=== PATIENT | male | born 1995 ===

== ENCOUNTER 2018-07-10 16:29 | Emergency (ER) | payer OTHER ==
--- NOTE | 2018-07-10 16:44 | Emergency Department Report ---
Chief Complaint: Syncope Stated Complaint: SENT BY DOCTOR/DIZZINESS Time Seen by Provider: 07/10/18 16:42 - HPI History of Present Illness: SENT FROM DUE TO ABNORMAL EKG AND DIZZINESS PMH NONE RX NONE PSH NONE NO TRAUMA MOM AW DAD AW NO CIG NO ETOH NO DRUGS MSE COMPLETED MSE screening note: Focused history and physical exam performed. Due to findings the following was ordered: ED Disposition for MSE Condition: Stable
[2018-07-10 17:02] LABS: Hematocrit 47.8 % (35.5-45.6); Hemoglobin 16.8 gm/dl (11.8-15.2); Mean Corpuscular HGB Conc 35 % (32-34); Mean Corpuscular Volume 85 fl (84-94); Platelet Count 279 K/mm3 (140-440); Red Blood Count 5.61 M/mm3 (3.65-5.03); Red Cell Distribution Width 12.5 % (13.2-15.2)
[2018-07-10 17:23] LABS: Alanine Aminotransferase 49 units/L (7-56); Albumin 4.9 g/dL (3.9-5); BUN/Creatinine Ratio 9; Blood Urea Nitrogen 12 mg/dL (9-20); Calcium 9.7 mg/dL (8.4-10.2); Hemolysis Index 16
--- NOTE | 2018-07-10 17:35 | XRay Report ---
PROCEDURE: XR CHEST ROUTINE 2V TECHNIQUE: Frontal and lateral views of the chest HISTORY: DIZZY COMPARISONS: None FINDINGS: There is no visible pulmonary consolidation. No radiographically visible pneumothorax. No evidence of pleural effusion. Cardiac silhouette size is normal without vascular congestion. No visible acute displaced fracture in the regional skeleton. IMPRESSION: No acute cardiopulmonary disease in the visualized chest. This document is electronically signed by Kaden Gill MD., July 10 2018 05:33:38 PM ET
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
[2018-07-10 21:22] VITALS: BP 135/76
== END 2018-07-10 20:24 | disposition home or self-care (01) ==
LOC: ED 16:29
DX: R55 Syncope and collapse (principal); R42 Dizziness and giddiness; R94.31 Abnormal electrocardiogram [ECG] [EKG]
CPT/HCPCS: 36415; 70450; 71046; 80053; 84443; 85027; 93005; 93010